=== PATIENT | female | born 2000 | race Hispanic/Latino ===

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

== ENCOUNTER 2023-02-23 09:29 | Outpatient (CLI) | payer OTHER | END 2023-02-23 09:30 | disposition home or self-care (01) | LOC: BICULT 09:29 | PROVIDERS: ATTEND Nurse Practitioner Family | DX: N91.2 Amenorrhea, unspecified (principal) | CPT/HCPCS: 76856 ==

== ENCOUNTER 2024-06-17 00:23 | Emergency (ER) | payer SELFPAY ==
[2024-06-17] MEDS ORDERED: Acetaminophen 500 MG TAB ONE (00:56)
[2024-06-17] MEDS ORDERED: Azithromycin 250 MG TAB ONE ×2 (00:56→00:57)
== END 2024-06-17 01:36 | disposition home or self-care (01) ==
LOC: ERS 00:23
DX: J18.9 Pneumonia, unspecified organism (principal)
CPT/HCPCS: 71045; 87428; 93005